=== PATIENT | female | born 1970 | race Caucasian/White ===

== ENCOUNTER → 2023-06-24 15:25 | Outpatient (REF) | payer BC, SELFPAY | LOC: HWRAD 15:25 | PROVIDERS: ATTENDING PHYSICIAN Internal Medicine Endocrinology, Diabetes & Metabolism; FAMILY PHYSICIAN Physician Assistant Medical | DX: E04.2 Nontoxic multinodular goiter (principal) | CPT/HCPCS: 76536 ==